=== PATIENT | male | born 1965 | race Two or more races ===

== ENCOUNTER 2024-05-21 05:36 | Emergency (ER) | payer MEDICAID, SELFPAY ==
[2024-05-21 06:08] VITALS: BP 86/65; PULSE 104; RESP 17; TEMP 36.9; O2SAT 97
[2024-05-21 06:10] VITALS: PULSE 110; O2SAT 99
--- NOTE | 2024-05-21 06:43 | PD.EDADULT ---
ED General RME/HPI General Chief complaint: Abdominal Pain Stated complaint: sob Time Seen by Provider: 05/21/24 06:45 Arrival date/time: 05/21/24 05:36 RME / HPI RME / HPI narrative: 59-year-old male with history of end-stage cirrhosis, on hospice, requiring frequent paracentesis, who presents with abdominal distention, shortness of breath, requesting paracentesis. He is a inquire recommendations given to them by the hospice nurse as to whether or not a catheter valve can be placed so they can drain it at home. Due to the abdominal distention he feels is difficult to take a full breath, but denies chest pain or cough. He denies fevers chills or sweats. Sister: We took history together, and she advises that he has been given 6 months , and is loyal at this point to hospice. They request only palliative care, palliative paracentesis. Related Data Previous Rx's ?Medication ?Instructions ?Recorded lisinopril 20 mg tablet 20 mg PO QDAY #30 tabs 08/18/17 Allergies Allergy/AdvReac Type Severity Reaction Status Date / Time No Known Allergies Allergy Verified 08/18/17 19:50 Review of Systems Review of Systems Systems Reviewed: All systems reviewed, normal except as documented ED Exam Narrative Physical exam: GENERAL APPEARANCE: AxOx4, cachectic, protein calorie malnutrition, mild respiratory difficulty, shallow breaths, nontoxic, foreign body jaundice HEENT: NC, AT. MMM. EOMI, clear conjunctiva, positive sclericterus oropharynx clear. NECK: Supple without lymphadenopathy. No stiffness or restricted ROM. HEART: Normal rate and regular rhythm, normal S1/S1, no m/r/g LUNGS: CTAB, moving air well. No crackles or wheezes are heard. ABDOMEN: Distended, tense fluid-filled abdomen,, nontender, nondistended with good bowel sounds heard. BACK: No midline C/T/L spine pain or deformity, No CVAT, no obvious deformity. EXTREMITIES: Without cyanosis, clubbing or edema. MUSCULOSKELETAL: FROM of all major joints, no chest tenderness NEUROLOGICAL: Grossly nonfocal. Alert and oriented, moving all 4 extremities. CN not formally tested but appear grossly intact. Observed to ambulate with normal gait. Skin: Warm and dry without any rash. Followed Course Quality Measures comfort care/end of life (Patient is hospice palliative care) Orders Category Date Time Status Nursing Core Measures: NOW Care 05/21/24 06:45 Active Obtain Written Consent For: .NOW Care 05/21/24 06:45 Completed Vital Signs Vital signs: Vital Signs Temperature 98.4 F 05/21/24 06:08 Pulse Rate 104 H 05/21/24 06:08 Respiratory Rate 17 05/21/24 06:08 Blood Pressure 86/65 L 05/21/24 06:08 Pulse Oximetry (%) 97 05/21/24 06:08 Oxygen Delivery Method Nasal Cannula 05/21/24 06:08 Oxygen Flow Rate 4 05/21/24 06:08 MDM Patient data External records reviewed:: [facility] previous records (No previous visits to the ER) Clinical information provided by:: patient and family ([id number]) Social determinants that could affect healthcare access:: none Patient has the following chronic illnesses:: Cirrhosis How is presenting disease/condition affected by chronic disease/condition?: caused by Evaluation data The following diagnostics were reviewed and interpreted by me:: other (specify) (Patient does not want laboratory testing secondary to end-of-life care) Lab and/or radiology exams considered but not ordered:: As per narrative Interpretation Summary: As per narrative Medications Medications considered but not ordered:: None Medication administrations:: None Consultations Consultation(s) initiated? (list below): No Diagnosis Differential Diagnosis ED Complaint MDM: Ascites, spontaneous bacterial peritonitis, malignant ascites Most likely diagnosis given after review of the tests above:: See below Admission Indicated Admission indicated?: not indicated Explain why admission is indicated or not indicated:: As per narrative Admission Request Was there a request for admission?: No Disposition Plan Disposition Plan: Discharge Discharge Attestation Discharge Attestation: The patient and all family members were given an opportunity to ask questions and understood the discharge instructions. Discharge instructions specifically effects, indications for sooner follow up or return to the emergency department, and the expected course of current diagnosis. Patient condition: Stable Medical Decision Making MDM Narrative MDM Narrative: Mr. Minor presents extremely cachectic, chronically ill-appearing with stigmata of advanced cirrhosis who presents with tense ascites. He does have some mild shortness of breath but exam could be and possibly concerning for abdominal compartment as a result and will require paracentesis. As apparent in his exam we did open discussion of his end-of-life care which he notes that he is with hospice care. He is aware of his disease process, he was admitted at [facility] April 20 for 10 days where this was discussed and told he had best has 6 months. It was then he was agreeable and transition to hospice care. Given his end-of-life wishes and palliative care, he does appear to be in distress therefore palliative paracentesis was done by me bedside which was successful for total of 10 L removed. He was smiling and resting comfortably. His blood pressure remained low, however he is very thin and very cachectic and I suspect this is just chronic with his low protein/oncotic status due to his cirrhosis. Clinically he looks well, he looks more comfortable, and this meets palliative care goals. We did discuss possible laboratory testing including liver enzymes and coagulopathy in order to assess his liver function and preprocedure, however he does not wish for any blood to be taken out. I feel this is reasonable and have not done any diagnostic testing per his wishes. On discharge his blood pressure was 74/48, he is asymptomatic, he is smiling, and drinking apple juice. He states his blood pressure is always low after the procedure and is requesting discharge but also jokes he does not have much to go home to as he does not have a . Differential Diagnosis Differential Diagnosis: Ascites, spontaneous bacterial peritonitis, malignant ascites Discharge Plan Plan Patient Disposition: HOME (Self Care) Prescriptions/Referrals Prescriptions/Med Rec: No Action lisinopril 20 mg tablet 20 mg PO QDAY Qty: 30 0RF Problem List Clinical Impression: Cirrhosis, Ascites Patient/Caregiver Discharge Instructions Education Materials: Paracentesis Dc, ED Cirrhosis Additional Instructions: Henry un seguimiento con fierro proveedor de cuidados paliativos, ?l deber?a poder programar un cat?ter de drenaje peritoneal a eugene plazo para que usted pueda permanecer c?modo en casa. Regrese al departamento de emergencias antes si los s?ntomas empeoran o si nota alg?n problema nuevo que le preocupe. Print Language: Maltese Stand Alone Forms: Anne Award Info., Patient Portal Info Letter
--- NOTE | 2024-05-21 06:55 | PC.NURSE ---
Pt appears in NAD.
[2024-05-21 08:34] VITALS: BP 85/62; PULSE 89; RESP 13; TEMP 36.6; O2SAT 100
[2024-05-21 08:50] VITALS: BMI 22.6
[2024-05-21 09:01] VITALS: BP 86/34; PULSE 84; RESP 12; O2SAT 100
[2024-05-21 10:06] VITALS: PULSE 82; RESP 13; O2SAT 100
[2024-05-21 10:34] VITALS: BP 65/39; PULSE 82; RESP 18; TEMP 36.4; O2SAT 100
--- NOTE | 2024-05-21 11:41 | PC.NURSE ---
12 liters removed from pt's abdomen at approx 0945 am. Pt tolerated well and states feeling better after procedure. Paracentesis performed by Dr. Escamilla.
== END 2024-05-21 11:37 | disposition home or self-care (01) ==
PROVIDERS: Emergency Provider Emergency Medicine; PCP Family Medicine
DX: K74.60 Unspecified cirrhosis of liver (principal); R18.8 Other ascites
CPT/HCPCS: 99284

== ENCOUNTER 2024-05-22 10:54 | Emergency (ER) | payer MEDICAID, SELFPAY ==
--- NOTE | 2024-05-22 10:59 | EDNOTE_ITS ---
ED General RME/HPI General Chief complaint: Cardiac Arrest/CPR Stated complaint: CODE BLUE Time Seen by Provider: 05/22/24 10:58 Arrival date/time: 05/22/24 10:54 RME / HPI RME / HPI narrative: 59-year-old male known to me, as I did a palliative paracentesis yesterday for end-stage liver disease who presents with respiratory arrest. En route he was in asystole or after chest compressions he did have V-fib and underwent ACLS V- fib protocol. He received 2 epinephrines, 1 defibrillation, and amiodarone en route. Air on arrival he is nonresponsive and pulseless. He is asystole. He is hospice palliative care with a terminal illness further resuscitation is futile and not of the patient's wishes. I remember him very well from yesterday, he had quite tense ascites and after paracentesis, 10 L, was smiling in fact he was joking and pleasant. Discussion with he and his [id number] did not want any testing as he undergoing his end-of-life care. He was persistently hypotensive as well however asymptomatic and again he was comfortable and smiling. We had agreed for comfort measures, therefore the paracentesis was done by me personally. He was much more comfortable afterwards. Initially was on oxygen due to difficulty breathing due to his abdominal distention, however I was able to take him off of oxygen without respiratory distress or any respiratory discomfort. This is an expected process for him. Sister in law: I met with the [id number] again today, she notes that he was doing well upon discharge. He was comfortable he did at one point complain of right upper quadrant pain of which she gave him pain medicine for. But otherwise no other focal issues. Related Data Previous Rx's ?Medication ?Instructions ?Recorded lisinopril 20 mg tablet 20 mg PO QDAY #30 tabs 08/18 Allergies Allergy/AdvReac Type Severity Reaction Status Date / Time No Known Allergies Allergy Verified 08/18/17 19:50 Review of Systems Review of Systems Systems Reviewed: All systems reviewed, normal except as documented ED Exam Narrative Physical exam: Apneic. Pupils fixed and dilated. Asystole on site monitor. Course Quality Measures none [facility] Patient data External records reviewed:: [facility] previous records Clinical information provided by:: patient Social determinants that could affect healthcare access:: none Patient has the following chronic illnesses:: End-stage liver disease How is presenting disease/condition affected by chronic disease/condition?: caused by Evaluation data The following diagnostics were reviewed and interpreted by me:: other (specify) () Lab and/or radiology exams considered but not ordered:: Interpretation Summary: Medications Medications considered but not ordered:: Medication administrations:: Consultations Consultation(s) initiated? (list below): No Diagnosis Differential Diagnosis ED Complaint MDM: Most likely diagnosis given after review of the tests above:: See below Admission Indicated Admission indicated?: not indicated Explain why admission is indicated or not indicated:: Admission Request Was there a request for admission?: No Disposition Plan Disposition Plan: other (specify) ([place]) Medical Decision Making MDM Narrative MDM Narrative: Mr. Minor is known to me as he came for a visit with me for a palliative paracentesis yesterday. He has end-stage liver cirrhosis and is under palliative care. He in fact requested a outpatient valve to be placed so that they can drain with hospice at home. He did not want any laboratory testing yesterday. He was comfortable and pleasant when he left however he was hypotensive. Today he was brought in in asystole, prolonged, and at this point it is without good outcome to continue resuscitation. Patient prior to arrival. Differential Diagnosis Differential Diagnosis: Discharge Plan Plan Patient Disposition: Prescriptions/Referrals Referrals: Ten Gonzalez MD [Primary Care Provider] - In 1 week Problem List Clinical Impression: Cirrhosis, Cardiac arrest Patient/Caregiver Discharge Instructions Print Language: Central African Stand Alone Forms: Anne Award Info., Patient Portal Info Letter
--- NOTE | 2024-05-22 11:04 | PC.CC ---
Addendum entered by Billie Blake 05/22/24 13:08: CC contacted [facility]'s Office/[employer] Office-Martina to report that patient was connected to [facility]. Per Martina, [facility] will have no involvement in contacting home. [facility] [place] and spoke to Larry to provide all information regarding next of kin. CC contacted [facility]-Intake Liaison, Martina Shea, to provide update as well. Addendum entered by Billie Blake 05/22/24 11:38: CC spoke to Kristen who reported that she is patient's [id number]. CC met with family and brother, Torrey Minor requested that patient be sent to [facility] and [facility] [place]. RN-Crystal chacon. Original Note: Steaming Machine Operator, Billie responded to [employer]. CC contacted patient's significant other, Sandy to ask that she presents to the ED for an update reagrding patient.
--- NOTE | 2024-05-22 11:07 | PC.NURSE ---
PT ARRIVED VIA EMS FROM HOME, WAS FOUND DOWN BY FAMILY, PER EMS FAMILY WANTED HIM FULL CODE, SEE CODE SHEET. CINTHIA CALLED AT [phone]
--- NOTE | 2024-05-22 12:10 | PC.NURSE ---
SPOKE WITH BEATRIS FROM [facility]ICE, SHE IS TO CALL HOME, SPOKE W/YELENA Valentino FROM [employer] [facility] # [phone]. BROTHER HANNA FLORES #
== END 2024-05-22 14:00 | disposition expired ==
PROVIDERS: Emergency Provider Emergency Medicine; PCP Family Medicine
DX: I46.9 Cardiac arrest, cause unspecified (principal); K74.60 Unspecified cirrhosis of liver
CPT/HCPCS: 92950; 99285